=== PATIENT | female | born 1965 | race Caucasian/White ===

== ENCOUNTER 2017-08-21 11:59 | Emergency (ER) | payer SELFPAY ==
[2017-08-21] MEDS ORDERED: Benzonatate 100 MG Cap PO ONE (12:24)
[2017-08-21] MEDS ORDERED: predniSONE 20 MG Tab PO ONE (12:24)
--- NOTE | 2017-08-21 12:28 | EDM.PDOC ---
ED HPI GENERAL MEDICAL PROBLEM - General Chief Complaint: General Stated Complaint: CONGESTION/COUGH/HEADACHE Time Seen by Provider: 08/21/17 12:15 Source of Information: Reports: Patient History Limitations: Reports: No Limitations - History of Present Illness INITIAL COMMENTS - FREE TEXT/NARRATIVE: Patient is a 52-year-old smoker who presents to the ED with a 3 week history of productive cough, earache, sinus congestion, and intermittent body aches. States for the last 3 week she's been trying to medicate herself with over-the- counter meds with no relief. States at night she notices the cough is mildly worse. She notes she has some postnasal drainage. She denies any chest discomfort, shortness of breath at rest or nausea vomiting, abdominal pain, diarrhea, pain with urination, increased swelling to her lower extremities, pain to the posterior aspect of her lower legs, history of DVT/EEG. She has no history of pneumonia. She states she has history of chronic bronchitis and is on a albuterol inhaler. She continues to smoke approximately half pack per day. She's been eating and drinking well. States their have been few sick exposures so questions influenza as the culprit. States alcohol use is sporadic. Admits to smoking pot. She has no primary care provider locally. 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 ED EXAM, GENERAL - Physical Exam Exam: See Below Exam Limited By: No Limitations General Appearance: Alert, WD/WN, No Apparent Distress Ears: Normal External Exam, Normal Canal, Hearing Grossly Normal, Normal TMs Nose: Normal Inspection, Nasal Swelling, Nasal Drainage Throat/Mouth: Normal Inspection, Normal Oropharynx, Normal Voice, No Airway Compromise Head: Atraumatic, Normocephalic, Sinus Tenderness Neck: Normal Inspection, Supple, Non-Tender, Full Range of Motion Respiratory/Chest: No Respiratory Distress, Lungs Clear, Normal Breath Sounds, No Accessory Muscle Use, Chest Non-Tender Cardiovascular: Normal Peripheral Pulses, Regular Rate, Rhythm Peripheral Pulses: 4+: Radial (L), Radial (R) Neurological: Alert, Oriented, CN II-XII Intact, Normal Cognition, No Motor/ Sensory Deficits Psychiatric: Normal Affect, Normal Mood Skin Exam: Warm, Dry, Intact, Normal Color, No Rash Course - Vital Signs Last Recorded V/S: Last Vital Signs Temp 97.8 F 08/21/17 12:07 Pulse 81 08/21/17 12:07 Resp 19 08/21/17 12:07 BP 133/92 H 08/21/17 12:07 Pulse Ox 99 08/21/17 12:07 - Orders/Labs/Meds Meds: Medications Discontinued Medications Generic Name Dose Route Start Last Admin Trade Name Josselin PRN Reason Stop Dose Admin Benzonatate 200 mg 08/21/17 12:24 08/21/17 12:35 Tessalon Perles PO 08/21/17 12:25 200 mg ONETIME ONE Administration Doxycycline Hyclate 100 mg 08/21/17 13:19 08/21/17 13:33 Vibramycin PO 08/21/17 13:20 100 mg ONETIME ONE Administration Prednisone 40 mg 08/21/17 12:24 08/21/17 12:35 Prednisone PO 08/21/17 12:25 40 mg ONETIME ONE Administration - Re-Assessments/Exams Free Text/Narrative Re-Assessment/Exam: Ordered prednisone 40 mg by mouth and also Tessalon Perles 200 mg by mouth. We' ll obtain a chest x-ray and also influenza screen. There's been no documented fever. She's been eating and drinking well. Will not obtain any labs at this point. 08/21/17 13:[address] Boothe. NO acute findings noted. Influenza screen was negative. Patient has most likely viral bronchitis. Due to patients history of copd and duration of symptoms this maybe bacterial at this time. Will order doxycycline. Departure - Departure Time of Disposition: 13:19 Disposition: Home, Self-Care 01 Condition: Good Clinical Impression: COPD exacerbation, Bronchitis - Discharge Information Prescriptions: Benzonatate [Tessalon Perle] 100 mg PO TID PRN #20 capsule PRN Reason: Cough Doxycycline [Doxycycline Hyclate] 100 mg PO BID #14 cap Prednisone [IJD: predniSONE] 2 tab PO WITHBREAKFAST #8 tab Instructions: Chronic Obstructive Pulmonary Disease Exacerbation, Acute Bronchitis, Adult Referrals: PCP,None [Primary Care Provider] - Forms: ED Department Discharge, ED Return to Work/School Form Additional Instructions: Suspect cause of current symptoms is viral but due to your history of possible COPD with minimal relief with inhaler and smoking history. I have elected to start you on doxycycline 100 mg twice a day, prednisone 40 mg every a.m., and Tessalon Perles 100 mg 3 times a day as needed. Continue taking your pro-air as prescribed 1-2 puffs every 4 hours for wheezing, cough, and also shortness of breath. Quit smoking. Follow-up with your PCP in one week for reevaluation. Return to the ED if you develop any new or worsening symptoms. Push the fluids. Ensure adequate rest.
[2017-08-21] MEDS ORDERED: Doxycycline 100 MG Cap PO ONE (13:19)
--- NOTE | 2017-08-21 13:40 | CR ---
Chest: Two views of the chest were obtained. Comparison: No previous study. Heart size and mediastinum are normal. Lungs are clear. Degenerative change is noted within the spine. Surgical clips are seen from prior cholecystectomy. Impression: 1. Nothing acute is seen on two-view chest x-ray. Diagnostic code #2
== END 2017-08-21 13:35 | disposition home or self-care (01) ==
LOC: JD.ED 11:59
DX: J44.1 Chronic obstructive pulmonary disease with (acute) exacerbation (principal); F17.210 Nicotine dependence, cigarettes, uncomplicated; Z79.899 Other long term (current) drug therapy
CPT/HCPCS: 71046; 87804; 99284; A9270; 99283

== ENCOUNTER 2018-07-06 19:15 | Emergency (ER) | payer OTHER ==
--- NOTE | 2018-07-06 21:08 | EDM.PDOC ---
ED HPI GENERAL MEDICAL PROBLEM - General Chief Complaint: Back Pain or Injury Stated Complaint: FELL HIT ARM AND HIP Time Seen by Provider: 07/06/18 19:50 Source of Information: Reports: Patient History Limitations: Reports: No Limitations - History of Present Illness INITIAL COMMENTS - FREE TEXT/NARRATIVE: 53-year-old female presents for evaluation and treatment of injuries sustained from a fall. Fall reportedly occurred at work. States this happened about 1600 today. 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 She states that somebody had washed the van causing the door to freeze close. Her and another coworker were attempting to open the van. She states that she was pulling on the outside handle when she pulled hard enough to remove the handle and fell backwards. She states that she landed on mattress behind her primarily on her right elbow, right hip and low back. She states that this seemed to jar her and she has been experiencing headache, neck pain, right shoulder pain, thoracic and lumbar spine pain since the fall. She took some Ibuprofen around 1600 which seemed to provide some relief. Reports nausea initially but no vomiting. She denies any numbness or tingling in the extremities. She reports she did not hit her head. She denies any syncope. She denies any epistaxis, loose teeth, chest pain or shortness of breath. Has been up and walking on her own volition since this occurred with only minor discomfort. Primary appreciates most of the pain when she stops moving. She reports that she's had a chronic cough and runny nose cement since about March. She has been managing this with [id number] Benadryl. She does not have a primary care provider. Onset: Today Neck Pain Score (Numeric/FACES): 5 Middle Back Pain Score (Numeric/FACES): 5 Right Hip Pain Score (Numeric/FACES): 5 Right Knee Pain Score (Numeric/FACES): 5 - Related Data Allergies Allergy/AdvReac Type Severity Reaction Status Date / Time No Known Allergies Allergy Verified 07/06/18 19:24 Home Meds: Home Meds . 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: Psychiatric History: Reports: Anxiety, Depression - Past Surgical History HEENT Surgical History: Reports: Other (See Below) Other HEENT Surgeries/Procedures: collapsed sinuses GI Surgical History: Reports: Cholecystectomy Female Surgical History: Reports: Section Social & Family History - Tobacco Use Smoking Status *Q: Current Every Day Smoker Years of Tobacco use: 25 Packs/Tins Daily: 1 - Caffeine Use Caffeine Use: Reports: Coffee, Tea - Recreational Drug Use Recreational Drug Use: No ED ROS GENERAL - Review of Systems Review Of Systems: See Below HEENT: Denies: Dental Pain, Nosebleed Respiratory: Reports: Cough (chronic since March). Denies: Shortness of Breath Cardiovascular: Denies: Chest Pain GI/Abdominal: Denies: Abdominal Pain, Nausea (initally, now resolved), Vomiting Musculoskeletal: Reports: Neck Pain, Shoulder Pain (minor right), Back Pain, Joint Pain (minor right), Muscle Pain (neck and back), Muscle Stiffness (neck and back) Skin: Denies: Bruising Neurological: Reports: Headache. Denies: Numbness, Syncope, Tingling, Difficulty Walking ED EXAM,LOWER BACK PAIN/INJURY - Physical Exam Exam: See Below Exam Limited By: No Limitations General Appearance: Alert, WD/WN, No Apparent Distress Eye Exam: Bilateral Eye: EOMI, Normal Inspection, PERRL Ears: Normal External Exam Nose: Normal Inspection Throat/Mouth: Normal Inspection, Normal Lips, Normal Voice, No Airway Compromise Head: Atraumatic, Normocephalic Neck: Normal Inspection, Supple, Non-Tender, Full Range of Motion, Other ( tenderness to the veterbral processes of C5-T4) Respiratory/Chest: No Respiratory Distress, Lungs Clear, Normal Breath Sounds, Chest Non-Tender Cardiovascular: Normal Peripheral Pulses, Regular Rate, Rhythm, No Murmur GI/Abdominal: Soft, Non-Tender Back Exam: Normal Inspection, Vertebral Tenderness (L4-sacrum and bilateral SI joints) Extremities: Normal Inspection (no external rotation of the bilateral lower extremities, no limb length shortening; no tenderness to palpation to the bilteral scapulas, clavicles, humerus wrist or forearms; no tenderness to palpation to the bilteral femurs, knees or lower legs), Non-Tender, Normal Capillary Refill Neurological: Alert, Normal Mood/Affect, Normal Dorsiflexion, Normal Plantar Flexion Psychiatric: Normal Affect, Normal Mood Skin Exam: Warm, Dry, Normal Color. No: Ecchymosis Course - Vital Signs Last Recorded V/S: Last Vital Signs Temp 97.2 F 07/06/18 19:21 Pulse 94 07/06/18 19:21 Resp 17 07/06/18 19:21 BP 155/91 H 07/06/18 19:21 Pulse Ox 100 07/06/18 19:21 - Orders/Labs/Meds Orders: Active Orders 24 hr Category Date Time Status Cervical Spine 2V or 3V [CR] Stat Exams 07/06/18 20:10 Ordered Lumbar Spine 2 or 3V [CR] Stat Exams 07/06/18 20:10 Ordered Thoracic Spine 2V [CR] Stat Exams 07/06/18 20:10 Ordered - Radiology Interpretation Free Text/Narrative:: xrays of the cervical, thoracic and lumbar spine show diffuse degenerative change and arthritis but no acute compression fracture or abnormality appreciated. Reviewed by myself and Dr. Boothe. - Re-Assessments/Exams Free Text/Narrative Re-Assessment/Exam: 07/06/18 21:20 Reviewed the xray results with the patient. Diffuse degenerative change but no acute fracture. Will treat for whip lash injury and muscle spasm. Recommend follow-up with occupational health. Recommend establishing with a PCP for routine exams. Chronic cough and runny nose likely allergies. Recommend OTC antihistamine such as claritin or zytrec. will discharge home tonight, discharge instructions as documented. Departure - Departure Time of Disposition: 21:24 Disposition: Home, Self-Care 01 Condition: Good Clinical Impression: Whiplash injuries, Fall - Discharge Information *PRESCRIPTION DRUG MONITORING PROGRAM REVIEWED*: No *COPY OF PRESCRIPTION DRUG MONITORING REPORT IN PATIENT HUSSEIN: No Instructions: Cervical Sprain, [id number] Referrals: PCP,None [Primary Care Provider] - Magno Solomon MD [Physician] - Erum Owens MD [Physician] - Forms: ED Department Discharge Additional Instructions: Rx for norflex 100mg caps 1 cap PO bid x 10 days #20 caps Follow-up with occupational health if you have not improved much in one week. Recommend Dr. Solomon at [facility] call [phone] to schedule with him. Recommend establishing with a primary care provider for normal routine checkups. At the same [facility] recommend Dr. Loza or Bridget Mendez. Call [phone] to schedule with one of these providers. Recommend [id number] Tylenol, Aleve or ibuprofen for pain relief. You may take the Norflex 1 tab twice a day as needed for muscle spasms. norflex may make you drowsy, do not drive or operate machinery until you know how this medication will affect you. Recommend using ice or heat for additional pain relief. You may also try a top products such as icy hot or BenGay. Recommend up and active as much as tolerated. Please return to the ER for symptoms change or worsen. - My Orders Last 24 Hours: My Active Orders 07/06/18 20:10 Cervical Spine 2V or 3V [CR] Stat Lumbar Spine 2 or 3V [CR] Stat Thoracic Spine 2V [CR] Stat - Assessment/Plan Last 24 Hours: My Active Orders 07/06/18 20:10 Cervical Spine 2V or 3V [CR] Stat Lumbar Spine 2 or 3V [CR] Stat Thoracic Spine 2V [CR] Stat
--- NOTE | 2018-07-07 08:45 | CR ---
Thoracic spine: AP, lateral and swimmer's views of the cervical spine were obtained. Comparison: No previous thoracic spine imaging. Diffuse disc space narrowing with endplate osteophytes. Endplate osteophytes are most prominent within the mid and lower thoracic spine. Vertebral body heights are maintained. Pedicles are intact. No discrete fracture or subluxation is seen. Impression: 1. Degenerative change as noted above. Diagnostic code #2
--- NOTE | 2018-07-07 08:45 | CR ---
Lumbar spine: AP, lateral and cone down lateral views centered to the lumbosacral junction were obtained. Comparison: No prior lumbar spine imaging. Diffuse disc space narrowing is noted within the lower thoracic and throughout the lumbar spine. Scattered endplate osteophytes are seen most prominent within the lower thoracic spine. There is a mild compression deformity being seen within L2 which appears to be old. Vertebral body heights are otherwise maintained. Pedicles are intact. No subluxation is seen. Surgical clips are seen from prior cholecystectomy. Sacroiliac joints are within normal limits. Impression: 1. Diffuse degenerative change as noted above. 2. Mild anterior wedging of L2 believed to be old. 3. Nothing acute is definitely appreciated. Diagnostic code #2
--- NOTE | 2018-07-07 08:45 | CR ---
Cervical spine: AP, lateral and odontoid views of the cervical spine were obtained. Comparison: No prior cervical spine imaging. Anterior osteophytes are seen at C4, C5, C6 and C7. Large bony density is seen anteriorly between C5-C6 compatible with bridging osteophyte. Partially bridging osteophyte is noted at C6-C7. Vertebral body heights and disc spaces are maintained. Minimal posterior osteophytes are noted at C5-C6 and C6-C7. Degenerative apophyseal change is noted within the mid and lower cervical spine. No subluxation or fracture is seen. Impression: 1. Degenerative change. Nothing acute is appreciated on three-view cervical spine study. Diagnostic code #2
== END 2018-07-06 21:41 | disposition home or self-care (01) ==
LOC: JD.ED 19:15
DX: S13.4XXA Sprain of ligaments of cervical spine, initial encounter (principal); F17.210 Nicotine dependence, cigarettes, uncomplicated; W19.XXXA Unspecified fall, initial encounter; Y92.89 Other specified places as the place of occurrence of the external cause; Y99.0 Civilian activity done for income or pay
CPT/HCPCS: 72040; 72040-26; 72070; 72070-26; 72100; 72100-26; 99282; 99284-25

== ENCOUNTER 2018-07-26 14:56 | Emergency (ER) | payer OTHER ==
--- NOTE | 2018-07-26 15:12 | EDM.PDOC ---
ED HPI GENERAL MEDICAL PROBLEM - General Chief Complaint: Lower Extremity Injury/Pain Stated Complaint: HIP PAIN Time Seen by Provider: 07/26/18 15:12 Source of Information: Reports: Patient, RN Notes Reviewed - History of Present Illness INITIAL COMMENTS - FREE TEXT/NARRATIVE: 53-year-old lady comes in with right low back discomfort. This has been bothering for about 2 weeks status post a fall about 2-1/2 weeks ago. She was seen here in the ED, did have x-rays of her lumbar thoracic spine with no fracture. She states the pain of her right low back has actually worsened over the past week or so now having radiation down the right leg to about the knee level. No numbness or focal weakness. 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 Movement does make the pain worse although she continues to know have discomfort even at rest. She's been working with Advil and ibuprofen not getting much relief. No voiding symptoms. No major abdominal or pelvic discomfort. right hip/buttock Pain Score (Numeric/FACES): 7 headache Pain Score (Numeric/FACES): 7 - Related Data Allergies Allergy/AdvReac Type Severity Reaction Status Date / Time No Known Allergies Allergy Verified 07/26/18 15:11 Home Meds: Home Meds . 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: Psychiatric History: Reports: Anxiety, Depression - Past Surgical History HEENT Surgical History: Reports: Other (See Below) Other HEENT Surgeries/Procedures: collapsed sinuses GI Surgical History: Reports: Cholecystectomy Female Surgical History: Reports: Section Social & Family History - Caffeine Use Caffeine Use: Reports: Coffee, Tea Review of Systems - Review of Systems Review Of Systems: See Below Constitutional: Denies: Chills, Fever Mouth/Throat: Denies: No Symptoms Respiratory: Denies: Shortness of Breath Cardiovascular: Denies: Chest Pain, Palpitations GI/Abdominal: Denies: Nausea, Vomiting Genitourinary: Reports: No Symptoms Musculoskeletal: Reports: Back Pain Skin: Reports: No Symptoms (Right low back) Neurological: Denies: Numbness, Tingling, Weakness ED EXAM, GENERAL - Physical Exam Exam: See Below General Appearance: Alert, Mild Distress Eye Exam: Bilateral Eye: PERRL Throat/Mouth: Normal Inspection Neck: Supple, Full Range of Motion Respiratory/Chest: No Respiratory Distress, Lungs Clear, Normal Breath Sounds Cardiovascular: Regular Rate, Rhythm GI/Abdominal: Soft, Non-Tender. No: Guarding, Rebound Back Exam: CVA Tenderness (R) (Mild), Paraspinal Tenderness (Right low back) Neurological: Alert, Oriented, No Motor/Sensory Deficits, Other (Mildly increased pain with straight leg raising right lower extremity) Skin Exam: Warm, Dry, Normal Color Course - Vital Signs Last Recorded V/S: Last Vital Signs Temp 97.8 F 07/26/18 15:08 Pulse 81 07/26/18 15:08 Resp 18 07/26/18 15:08 BP 133/83 07/26/18 15:08 Pulse Ox 99 07/26/18 15:08 - Orders/Labs/Meds Orders: Active Orders 24 hr Category Date Time Status Hip Min 2V or 3V w Pelvis Rt [CR] Stat Exams 07/26/18 15:40 Taken Meds: Medications Discontinued Medications Generic Name Dose Route Start Last Admin Trade Name Josselin PRN Reason Stop Dose Admin Hydrocodone Bitart/Acetaminophen 1 tab 07/26/18 15:40 07/26/18 16:03 [place] 325-5 Mg PO 07/26/18 15:41 1 tab ONETIME ONE Administration Prednisone 40 mg 07/26/18 16:49 07/26/18 17:06 Prednisone PO 07/26/18 16:50 40 mg ONETIME ONE Administration - Re-Assessments/Exams Free Text/Narrative Re-Assessment/Exam: 07/26/18 17:35 X-rays of the right hip and pelvis were obtained because of her fall and she has had some radiation of discomfort toward the right groin. There is no visible fracture. Hip joint looks fairly well, no significant degenerative changes apparent. Have given hydrocodone 10/02/24 one tab by mouth and also prednisone 40 mg by mouth, I did discuss potential benefit of physical therapy. She does not have insurance at this time, wants to wait on that part of treatment for now, discharge instructions as documented. Departure - Departure Time of Disposition: 16:53 Disposition: Home, Self-Care 01 Condition: Fair Clinical Impression: Sciatica Qualifiers: Laterality: right Qualified Code(s): M54.31 - Sciatica, right side - Discharge Information Instructions: Sciatica Referrals: PCP,None [Primary Care Provider] - Forms: ED Department Discharge Additional Instructions: Continue Advil or ibuprofen 4-600 mg 3 times daily with food, you may take Tylenol in between doses for extra pain relief or hydrocodone if needed for severe pain. Do not take Tylenol and hydrocodone at the same time. Do not drive when taking hydrocodone. Prednisone as prescribed, 40 mg daily for 5 days and then tapering to 20 mg for the next 2 days. Follow-up with Sharmila Nelson, or one of our other clinic providers later this week for recheck, further eval. and treatment as needed. Call [phone] for appointment. - My Orders Last 24 Hours: My Active Orders 07/26/18 15:40 Hip Min 2V or 3V w Pelvis Rt [CR] Stat - Assessment/Plan Last 24 Hours: My Active Orders 07/26/18 15:40 Hip Min 2V or 3V w Pelvis Rt [CR] Stat
[2018-07-26] MEDS ORDERED: Acetaminophen/HYDROcodone 325-5 MG Tab PO ONE (15:40)
[2018-07-26] MEDS ORDERED: predniSONE 20 MG Tab PO ONE (16:49)
--- NOTE | 2018-07-27 06:45 | CR ---
Pelvis and right hip: AP view of the pelvis was obtained as well as AP and frog-leg lateral views of the right hip. Comparison: No previous pelvis or hip exam. Joint spaces within both hips are maintained. Slight osteophytes are seen off the endplates within the lower lumbar spine. Right sacroiliac joint appears within normal limits. No subluxation or fracture seen. Impression: 1. Slight endplate osteophytes within the lower lumbar spine. 2. AP pelvis and two-view right hip exam are otherwise unremarkable. Diagnostic code #2
== END 2018-07-26 17:09 | disposition home or self-care (01) ==
LOC: JD.ED 14:56
DX: M54.41 Lumbago with sciatica, right side (principal)
CPT/HCPCS: 73502; 99283; A9270

== ENCOUNTER 2019-08-06 18:44 | Emergency (ER) | payer BC, OTHER ==
--- NOTE | 2019-08-06 19:35 | EDM.PDOC ---
ED HPI GENERAL MEDICAL PROBLEM - General Chief Complaint: Laceration Stated Complaint: LEFT HAND LAC Time Seen by Provider: 08/06/19 19:04 Source of Information: Reports: Patient History Limitations: Reports: No Limitations ( left index ) - History of Present Illness INITIAL COMMENTS - FREE TEXT/NARRATIVE: Patient is a 54-year-old female who presents with complaints of a laceration to her left index finger. Patient states that she was at work and using a meatman and sliced the tip of her finger. She also has a superficial laceration to her left thumb. Last tetanus vaccination was 4 to 5 years ago. Left Finger-Index Pain Score (Numeric/FACES): 1 - Related Data Allergies Allergy/AdvReac Type Severity Reaction Status Date / Time No Known Allergies Allergy Verified 08/06/19 19:03 Home Meds: Home Meds . 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 ED EXAM, SKIN/RASH Exam: See Below Exam Limited By: No Limitations General Appearance: Alert, WD/WN, No Apparent Distress Respiratory/Chest: No Respiratory Distress, Lungs Clear, Normal Breath Sounds, No Accessory Muscle Use, Chest Non-Tender Cardiovascular: Normal Peripheral Pulses, Regular Rate, Rhythm, No Edema, No Gallop, No JVD, No Murmur, No Rub Neurological: Alert, Oriented, CN II-XII Intact, Normal Cognition, Normal Gait, Normal Reflexes, No Motor/Sensory Deficits Psychiatric: Normal Affect, Normal Mood Skin: Warm, Dry, Normal Color, No Rash, Other (Approximate 1 cm avulsion of the pad of the left index finger with moderate bleeding present. Injury involves only subcutaneous tissue. No exposed bone present. Approximate 1.5 cm superficial laceration to the left thumb. No active bleeding.) Course - Vital Signs Last Recorded V/S: Last Vital Signs Temp 98.1 F 08/06/19 18:59 Pulse 83 08/06/19 18:59 Resp 18 08/06/19 18:59 BP 144/81 H 08/06/19 18:59 Pulse Ox 98 08/06/19 18:59 - Re-Assessments/Exams Free Text/Narrative Re-Assessment/Exam: 08/06/19 19:45 Laceration of the left index finger and left thumb was soaked in a solution of sterile water and Betadine. Hemostatic gauze was applied to the area of avulsion of the left index finger. Tubular gauze dressing was applied over this. Patient was monitored for approximately 20 minutes and there was no further bleeding noted through the dressing. Laceration to the thumb is superficial and does not require suturing at this time. Antibiotic ointment and a Band-Aid was applied to this. Tdap is up-to-date. We will discharge patient home with instructions to leave the hemostatic gauze and tubular gauze dressing in place for 24 hours. Discharge instructions as documented. Departure - Departure Time of Disposition: 19:46 Disposition: Home, Self-Care 01 Condition: Good Clinical Impression: Fingertip avulsion Qualifiers: Encounter type: initial encounter Qualified Code(s): S61.209A - Unspecified open wound of unspecified finger without damage to nail, initial encounter - Discharge Information *PRESCRIPTION DRUG MONITORING PROGRAM REVIEWED*: No *COPY OF PRESCRIPTION DRUG MONITORING REPORT IN PATIENT HUSSEIN: No Instructions: Wound Care, Adult Referrals: Josey Egan MD [Primary Care Provider] - Forms: ED Department Discharge Additional Instructions: You were seen in the emergency department today for an avulsion of the tip of your left index finger. The area was cleansed with sterile water and Betadine. Hemostatic gauze was applied to the laceration and a tubular gauze dressing was applied to the finger. Bleeding did stop after these were applied. Leave this dressing intact for at least 24 hours. After this time you may remove the tubular gauze dressing. Do not pull the hemostatic gauze off of the wound as this will likely cause a recurrence of bleeding. Recommend that you soak the finger in a solution of soap and water until the dressing falls off. Keep the finger covered with a Band-Aid for the next few days. You may apply antibiotic ointment as well. Wash the wound with normal soap and water twice a day. Watch for signs of infection including increased redness, swelling, or purulent drainage. If this should occur recommend that you follow-up in the clinic or return to the emergency department as antibiotics may be necessary. Sepsis Event Note - Evaluation Sepsis Screening Result: No Definite Risk - Focused Exam Vital Signs: Vital Signs Temp Pulse Resp BP Pulse Ox 08/06/19 18:59 98.1 F 83 18 144/81 H 98 Date Exam was Performed: 08/06/19 Time Exam was Performed: 22:52
== END 2019-08-06 19:50 | disposition home or self-care (01) ==
LOC: JD.ED 18:44
DX: S61.201A Unspecified open wound of left index finger without damage to nail, initial encounter (principal); W26.8XXA Contact with other sharp object(s), not elsewhere classified, initial encounter; Y99.0 Civilian activity done for income or pay
CPT/HCPCS: 99282

== ENCOUNTER 2021-04-10 20:03 | Emergency (ER) | payer BC ==
[2021-04-10] MEDS ORDERED: Ketorolac 60 MG/2 ML SDV IM ONE (21:13)
--- NOTE | 2021-04-10 21:35 | EDM.PDOC ---
ED HPI GENERAL MEDICAL PROBLEM - General Chief Complaint: Lower Extremity Injury/Pain Stated Complaint: L LEG PAIN Time Seen by Provider: 04/10/21 21:02 Source of Information: Reports: Patient, RN Notes Reviewed History Limitations: Reports: No Limitations - History of Present Illness INITIAL COMMENTS - FREE TEXT/NARRATIVE: Patient is a 55-year-old female presenting to the emergency department with complaints of pain to her left lower extremity. Symptoms have been present for approximately the last 4 weeks. She describes intense pain bowtie and her left knee and most recently into her left hip. She does have a history of sciatica but states it is never been this bad. Denies any low back pain or bowel or bladder dysfunction. She is had no injuries. She was seen in the [facility] approximately 2 weeks ago and she did a short course of prednisone 20 mg daily which she states may have helped slightly but did not resolve. She was prescribed meloxicam, however she read the side effects and does not feel comfortable taking this medication. She reports around 4:00 today she took a single ibuprofen and a single Tylenol together. Denies any history of blood clots. 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: Musculoskeletal History: Reports: Arthritis Psychiatric History: Reports: Anxiety, Depression - Infectious Disease History Infectious Disease History: Reports: None - Past Surgical History HEENT Surgical History: Reports: Other (See Below) Other HEENT Surgeries/Procedures: collapsed sinuses GI Surgical History: Reports: Cholecystectomy Female Surgical History: Reports: Section Social & Family History - Family History Family Medical History: No Pertinent Family History - Tobacco Use Tobacco Use Status *Q: Current Every Day Tobacco User Years of Tobacco use: 30 Packs/Tins Daily: 0.5 - Caffeine Use Caffeine Use: Reports: Coffee - Recreational Drug Use Recreational Drug Use: No Review of Systems - Review of Systems Review Of Systems: Comprehensive ROS is negative, except as noted in HPI. ED EXAM, GENERAL - Physical Exam Exam: See Below Exam Limited By: No Limitations General Appearance: Alert, WD/WN, Mild Distress Respiratory/Chest: No Respiratory Distress, Lungs Clear, Normal Breath Sounds, No Accessory Muscle Use, Chest Non-Tender Cardiovascular: Normal Peripheral Pulses, Regular Rate, Rhythm, No Edema, No Gallop, No JVD, No Murmur, No Rub Back Exam: Normal Inspection, Full Range of Motion, Other (Over theTenderness over bilateral SI joints, right worse than the left. Left SI joint elicits shooting pain down the left leg. Tenderness to palpation to left posterior calf. No redness warmth or swelling.). No: Vertebral Tenderness Neurological: Alert, Oriented, CN II-XII Intact, Normal Cognition, Normal Gait, Normal Reflexes, No Motor/Sensory Deficits Psychiatric: Normal Affect, Normal Mood Skin Exam: Warm, Dry, Intact, Normal Color, No Rash Course - Vital Signs Last Recorded V/S: Last Vital Signs Temp 97.7 F 04/10/21 20:26 Pulse 98 04/10/21 20:26 Resp 20 04/10/21 20:26 BP 131/77 04/10/21 20:26 Pulse Ox 95 04/10/21 20:26 - Orders/Labs/Meds Labs: Laboratory Tests 04/10/21 Range/Units 21:45 D-Dimer, Quantitative 0.31 (0.19-0.50) mg/L Meds: Medications Discontinued Medications Generic Name Dose Route Start Last Admin Trade Name Freq PRN Reason Stop Dose Admin Ketorolac Tromethamine 60 mg 04/10/21 21:13 04/10/21 22:23 Ketorolac 60 Mg/2 Ml Sdv IM 04/10/21 21:14 60 mg ONETIME ONE Administration - Re-Assessments/Exams Free Text/Narrative Re-Assessment/Exam: Patient is a 55-year-old female presenting to the emergency department complaints of intense left leg pain that is causing her to not be able to sleep. Symptoms have been present for last 4 weeks. She was prescribed a short course of prednisone 20 mg daily for 5 days 2 weeks ago which she states may have helped slightly. Also prescribed meloxicam, however she read the side effects and does not wish to take this. She has been using very low doses of Tylenol and ibuprofen which she states are not helping. Reports history of sciatica, however she never been this painful. On exam, she has tenderness over the bilateral SI joints. To palpation of the left SI joint elicits sharp shooting pain down the left leg. I suspect her pain is related to sciatica, however given that the majority of is located in her posterior calf, I have ordered a D-dimer to rule out blood clot. In the meantime, I will give her Toradol 60 mg IM. 04/10/21 22:31 D-dimer is normal. I will provide short instrument prescription for hydrocodone with Tylenol to help patient with pain so she can sleep. Also do a tapering burst of prednisone to see if that helps the symptoms of sciatica. Recommend follow-up in the clinic. Discharge instructions as documented. Departure - Departure Time of Disposition: 22:31 Disposition: Home, Self-Care 01 Condition: Good Clinical Impression: Sciatica Qualifiers: Laterality: right Qualified Code(s): M54.31 - Sciatica, right side - Discharge Information *PRESCRIPTION DRUG MONITORING PROGRAM REVIEWED*: Yes *COPY OF PRESCRIPTION DRUG MONITORING REPORT IN PATIENT HUSSEIN: No Prescriptions: predniSONE [Prednisone] 40 mg PO ASDIRECTED #15 tablet Instructions: Sciatica, [id number] Referrals: PCP,Not In Area [Primary Care Provider] - Forms: ED Department Discharge Additional Instructions: Take Tylenol, 650 mg every 4-6 hours or ibuprofen 600 mg every 6 hours as needed for pain. For pain not relieved by this, he may take one of the hydrocodone with Tylenol. Do not work or drive for 12 hours after taking this as it can be sedating. Be aware that there are 325 mg of Tylenol in each tablet of this. Ensure that you are not taking in more than 4000 mg of Tylenol from all sources in a 24-hour period. Take prednisone as prescribed. Keep appointment as scheduled to establish care with primary care provider. Return to ER as needed. Sepsis Event Note (ED) - Focused Exam Vital Signs: Vital Signs Temp Pulse Resp BP Pulse Ox 04/10/21 20:26 97.7 F 98 20 131/77 95
== END 2021-04-10 22:43 | disposition home or self-care (01) ==
LOC: JD.ED 20:03
DX: M54.32 Sciatica, left side (principal); J45.909 Unspecified asthma, uncomplicated; Z72.0 Tobacco use
CPT/HCPCS: 36415; 85379; 96372; 99283; J1885